=== PATIENT | female | born 1965 | race Caucasian/White ===

== ENCOUNTER 2017-03-27 05:26 | Observation (INO) | payer BC, OTHER ==
[~2017-03-27] VITALS: Ht 154.9 cm; Wt 84.4 kg
[~2017-03-27 05:26] MED LIST: FERR325C PO; ZOLO100T PO
[2017-03-27] MEDS ORDERED: LACTATED RINGER'S 1000 ML IV PRN (05:45)
[2017-03-27] MEDS ORDERED: SODIUM CHLORID 0.9% 500 ML IV PRN (05:45)
[2017-03-27] MEDS ORDERED: METOPROLOL TARTRATE 25 MG TAB PO PRN (05:45)
[2017-03-27] MEDS ORDERED: CHLORHEXIDINE GLUCONATE 2 % 1 PACK (2 CLOTHS) TOPICAL PRN (05:45)
[2017-03-27] MEDS ORDERED: INSULIN HUMAN REGULAR 1,000 UNITS/10 ML VIAL SQ PRN (05:45)
[2017-03-27] MEDS ORDERED: ALLE60TA PO (06:19)
[2017-03-27] MEDS: ceFAZolin 2 GM PREMIX 50 ML IV SCH ×2 (06:44→09:11)
[2017-03-27 06:54] LABS: AUTOMATED NEUTROPHIL # 2.4 TH/MM3 (1.8-7.7); BASOPHIL # 0.1 TH/MM3 (0-0.2); BASOPHIL % 1.1 % (0.0-2.0); EOSINOPHIL # 0.2 TH/MM3 (0-0.4); EOSINOPHIL % 3.1 % (0.0-4.0); HEMATOCRIT 30.4 % (35.0-46.0); HEMO FLAGS DIFF FINAL; LYMPH % 36.7 % (9.0-44.0); LYMPHOCYTE # 1.8 TH/MM3 (1.0-4.8); MEAN CELL VOLUME 67.5 FL (80.0-100.0); MEAN CORPUSCULAR HEMOGLOBIN 21.1 PG (27.0-34.0); MEAN CORPUSCULAR HGB CONC 31.2 % (32.0-36.0); MONO % 9.2 % (0.0-8.0); NEUT % 49.9 % (16.0-70.0); PLATELET COUNT 388 TH/MM3 (150-450); RED CELL DISTRIBUTION WIDTH 18.8 % (11.6-17.2); WHITE BLOOD COUNT 4.9 TH/MM3 (4.0-11.0)
[2017-03-27] MEDS ORDERED: ACETAMINOPHEN 1000 MG/100 ML VIAL ONE (07:12)
[2017-03-27 07:20] LABS: BETA HCG QUANT LESS THAN 1 MIU/ML (0-5)
[2017-03-27] MEDS: BUPIVACAINE/EPINEPHRINE 0.25% 50 ML VIAL ONE (07:38)
[2017-03-27] MEDS ORDERED: MIDAZOLAM HCL 2 MG/2 ML VIAL ONE (09:59)
[2017-03-27] MEDS ORDERED: ONDANSETRON HCL 4 MG/2 ML VIAL IVP PRN (10:00)
[2017-03-27] MEDS ORDERED: SODIUM CHLORIDE 0.9% FLUSH 10 ML FLUSH IV FLUSH PRN (10:00)
[2017-03-27] MEDS ORDERED: fentaNYL CITRATE 250 MCG/5 ML AMP ONE (10:00)
[2017-03-27] MEDS ORDERED: KETOROLAC TROMETHAMINE 30 MG/ML (IVP) VIAL IVP PRN (10:00)
[2017-03-27] MEDS ORDERED: IBUPROFEN 600 MG TAB PO PRN (10:00)
[2017-03-27] MEDS ORDERED: HYDROmorphone HCL PF 1 MG/ML VIAL IVP PRN (10:00)
[2017-03-27] MEDS ORDERED: diphenhydrAMINE HCL 25 MG CAP PO PRN (10:00)
[2017-03-27] MEDS ORDERED: oxyCODONE/ACETAMINOPHEN 5 MG/325 MG TAB PO PRN (10:00)
--- NOTE | 2017-03-27 10:05 | PD.OP ---
Operative Report Date of Surgery: Mar 27, 2017 Preoperative Diagnosis: (1) Fibroid tumor (2) Anemia Postoperative Diagnosis: (1) Fibroid tumor (2) Anemia Procedure: LASH bilateral salpingectomy Anesthesia: general Surgeon: Bert Le Upper Marker(s): Bert Cisneros MD Mar 27, 2017 10:05
[2017-03-27] MEDS ORDERED: *MEPERIDINE 25 MG INJ VIAL PERIprocedural Use ONLY ONE (10:11)
[2017-03-27] MEDS ORDERED: OXYC1TAB63 PO (10:12)
[2017-03-27] MEDS ORDERED: LACTATED RINGER'S 1000 ML INJ 1,000 ML ONE (10:25)
[2017-03-27] MEDS ORDERED: DO NOT ADM ANY ANTICOAGULANT DRUGS PRN (10:30)
[2017-03-27] MEDS: LACTATED RINGER'S 1000 ML INJ 1,000 ML IV SCH ×2 (10:30→20:38)
--- NOTE | 2017-03-27 10:30 | MP ---
cc: DONITA LE M.D. DATE OF SURGERY 03/27/2017 PROCEDURE Laparoscopic supracervical hysterectomy with bilateral salpingectomy. PREOPERATIVE DIAGNOSIS Fibroid uterus and anemia. POSTOPERATIVE DIAGNOSIS Fibroid uterus and anemia. SURGEON Dr. Donita Le ESTIMATED BLOOD LOSS 200 cc COMPLICATIONS None FINDINGS Large fibroid uterus, boggy with a prolapsed fibroid in the endocervical canal. Ovaries appeared normal. Fallopian tubes were normal. Upper and lower abdomen were otherwise normal. PROCEDURE IN DETAIL After informed consent, the patient taken to the operating room where she was placed under general anesthesia and placed in the supine position, legs in the Yellow-fin stirrups. The abdomen, perineum and vagina were prepped and draped in a normal sterile fashion. After adequate anesthesia was assured and a time-out was taken, a speculum placed in the vagina. A sponge stick was placed at the cervix and a Sauceda catheter was then placed to dependent gravity. After gloves were changed, a 5 mm infraumbilical incision was then made, carried sharply into the subcutaneous tissue. We entered the abdomen under direct visualization. A survey of the upper and lower abdomen as are as in the findings. Left and right lower quadrant 5 mm trocars were placed. We proceeded with the Harmonic scalpel to take down the fallopian tubes off the ovaries in the mesosalpinx and then amputating both fallopian tubes to be sent to pathology. We came across the round ligament and the utero-ovarian ligament by dissecting with harmonic scalpel. Good hemostasis was achieved down to the level of the uterine arteries. Once we down to the level of the uterine arteries, a bladder flap was created by dissecting the bladder off the lower uterine segment, pushed down onto the cervix and the uterine arteries were taken. There was slight back bleeding and a suction computer science intern had to be opened. At this point, we used bipolar cautery to control that backbleeding, visualized well, dissected the uterine arteries down the level of the cervical neck. We came across the cervix without difficulty with the Harmonic scalpel and amputated the uterus. Good hemostasis was achieved and the prolapsed fibroid was in the cervical os which was removed. At this point, a small laparotomy incision suprapubically was made to pull the uterus out intact. Secondary to fibroids, we did not want to morcellate. We removed the uterus without difficulty intact and not spill any of the tissue into the abdomen. At that point, once the uterus was completely removed from the abdomen, the 30 mm incision was closed with Vicryl suture and then the skin was closed suprapubically. The abdomen was reinsufflated. All pedicles were noted to be hemostatic. The pelvis was irrigated free of all clots and debris. Good hemostasis was achieved at all pedicles. The cervix appeared normal. At this point, the pelvis was hemostatic. All instruments were removed. CO2 was removed from the abdomen and the 5 mm incisions were all closed with 4-0 Monocryl. The patient tolerated the procedure well. She was taken to the recovery room in stable condition. All instruments were removed from the vagina and the abdomen. MD MAXIME Chong/ARISTEO /10:05 AM /10:17 AM
[2017-03-27] MEDS ORDERED: PHENYLEPH/NS 1000 MCG/10 ML SYR IV ONE (12:22)
[2017-03-27] MEDS ORDERED: NEOSTIGMINE 3 MG/3 ML SYR IV ONE (12:22)
[2017-03-27] MEDS ORDERED: ONDANSETRON HCL 4 MG/2 ML VIAL IV PUSH ONE (12:22)
[2017-03-27] MEDS ORDERED: KETOROLAC TROMETHAMINE 60 MG/2 ML (IM) VIAL IM ONE (12:22)
[2017-03-27] MEDS ORDERED: PROPOFOL 200 MG/20 ML AMP IV ONE (12:22)
[2017-03-27] MEDS ORDERED: LACTATED RINGER'S 1000 ML INJ 1,000 ML IV ONE (12:22)
[2017-03-27] MEDS ORDERED: ePHEDrine/NS 25 MG/5 ML SYR IV ONE (12:22)
--- NOTE | 2017-03-27 13:38 | EKG ---
Date Performed: 03/27/2017 Time Performed: 06:29:00 PTAGE: 51 years EKG: Sinus bradycardia. Normal ECG except for rate Compared to prior tracing no significant aguilera ge PREVIOUS TRACING : 08/03/2010 07.36 DOCTOR: Annette Bowles Interpretating Date/Time 03/27/2017 13:37:02
[2017-03-27 14:00] VITALS: BP 104/54; PULSE 80; RESP 16; TEMP 97.4; O2SAT 92
[2017-03-27] MEDS: oxyCODONE/ACETAMINOPHEN 5 MG/325 MG TAB PO PRN ×2 (14:20→19:25)
[2017-03-27 16:00] VITALS: BP 107/56; PULSE 85; RESP 16; TEMP 97.4; O2SAT 95
[2017-03-27 20:00] VITALS: BP 114/56; PULSE 83; RESP 17; TEMP 97.5; O2SAT 93
[2017-03-27] MEDS: SODIUM CHLORIDE 0.9% FLUSH 10 ML FLUSH IV FLUSH SCH (20:40)
[2017-03-27 21:32] VITALS: O2SAT 94
[2017-03-28] VITALS: BP 96/52; PULSE 72; RESP 18; TEMP 97; O2SAT 97
[2017-03-28] MEDS: oxyCODONE/ACETAMINOPHEN 5 MG/325 MG TAB PO PRN ×2 (00:23→06:44)
[2017-03-28 04:00] VITALS: BP 93/53; PULSE 73; RESP 18; TEMP 98.1; O2SAT 97
[2017-03-28 06:54] LABS: AUTOMATED NEUTROPHIL # 7.1 TH/MM3 (1.8-7.7); BASOPHIL % 0.1 % (0.0-2.0); HEMATOCRIT 24.4 % (35.0-46.0); HEMO FLAGS DIFF FINAL; LYMPH % 13.7 % (9.0-44.0); LYMPHOCYTE # 1.2 TH/MM3 (1.0-4.8); MEAN CELL VOLUME 67.8 FL (80.0-100.0); MEAN CORPUSCULAR HEMOGLOBIN 20.9 PG (27.0-34.0); MEAN CORPUSCULAR HGB CONC 30.8 % (32.0-36.0); MONO % 8.2 % (0.0-8.0); PLATELET COUNT 326 TH/MM3 (150-450); WHITE BLOOD COUNT 9.1 TH/MM3 (4.0-11.0)
--- NOTE | 2017-03-28 07:50 | HHI.OB ---
Subjective Post Operative Day: 1 Remarks doing well. Feels good no flatus but good BS and no nausea Objective Vitals/I&O Vital Signs Date Time Temp Pulse Resp B/P (MAP) Pulse Ox O2 Delivery O2 Flow Rate FiO2 03/28/17 04:00 98.1 73 18 93/53 (66) 97 03/28/17 00:00 97.0 72 18 96/52 (67) 97 03/27/17 21:32 94 21 03/27/17 20:00 97.5 83 17 114/56 (75) 93 03/27/17 16:00 97.4 85 16 107/56 (73) 95 03/27/17 14:00 97.4 80 16 104/54 (71) 92 03/27/17 13:40 82 16 95 03/27/17 13:30 97.6 86 16 108/56 (73) 95 Room Air 03/27/17 13:00 85 16 103/55 (71) 94 Room Air 03/27/17 12:00 84 16 107/54 (71) 94 Room Air 03/27/17 11:30 82 16 108/59 (75) 99 Nasal Cannula 2 03/27/17 11:00 97.5 80 16 106/54 (71) 98 Nasal Cannula 2 03/27/17 10:45 78 15 105/52 (69) 96 Nasal Cannula 2 03/27/17 10:30 75 15 110/53 (72) 95 Nasal Cannula 2 03/27/17 10:15 74 15 113/58 (76) 99 Nasal Cannula 3 03/27/17 10:00 73 15 116/55 (75) 98 Nasal Cannula 3 03/27/17 09:50 97.8 75 17 124/58 (80) 100 Nasal Cannula 4 Intake & Output 03/28/17 03/28/17 07:00 19:00 Intake Total 600 ml Output Total 1000 ml Balance -400 ml Intake IV Total 600 ml Output Urine Total 1000 ml # Voids 1 Result Diagram: 03/28/17 0532 Objective Remarks GENERAL: Well-nourished, well-developed patient. CARDIOVASCULAR: Regular rate and rhythm without murmurs, gallops, or rubs. RESPIRATORY: Breath sounds equal bilaterally. No accessory muscle use. ABDOMEN/GI: Abdomen soft, non-tender, bowel sounds present. Incision: Clean, dry and intact. GENITOURINARY: Light to moderate bleeding. EXTREMITIES: No cyanosis or edema, non-tender, without signs of DVT. Medications and IVs Current Medications Medications (Trade) Dose Ordered Sig/Ya Route Start Time Stop Time Status Last Admin (Lopressor) 25 mg MATE FISHING VESSEL PRN PO 03/27/17 05:45 03/30/17 05:44 (Chlorhexidine 2% Cloth) 3 pack MATE FISHING VESSEL PRN TOPICAL 03/27/17 05:45 03/30/17 05:44 03/27/17 05:40 (NovoLIN R INJ) See Protocol Table ... MATE FISHING VESSEL PRN SQ 03/27/17 05:45 03/30/17 05:44 (NS Flush) 2 ml UNSCH PRN IV FLUSH 03/27/17 10:00 (NS Flush) 2 ml BID IV FLUSH 03/27/17 21:00 03/27/17 20:40 (Motrin) 600 mg Q6H PRN PO 03/27/17 10:00 (Toradol Inj) 30 mg Q6H PRN IVP 03/27/17 10:00 04/01/17 09:59 (Percocet 5-325 Mg) 1 tab Q4H PRN PO 03/27/17 10:00 (Percocet 5-325 Mg) 2 tab Q4H PRN PO 03/27/17 10:00 03/28/17 06:44 (Dilaudid Pf Inj) 1 mg Q4H PRN IVP 03/27/17 10:00 (Benadryl) 25 mg Q6H PRN PO 03/27/17 10:00 (Zofran Inj) 4 mg Q6H PRN IVP 03/27/17 10:00 Lactated Ringer's 1,000 ml @ 75 mls/hr [id number] IV 03/27/17 10:30 03/27/17 20:38 Miscellaneous Information ALL NURSING DEPARTME... UNSCH PRN .XX 03/27/17 10:30 03/28/17 10:29 Assessment/Plan Problem List: (1) Fibroid tumor ICD Codes: D25.9 - Leiomyoma of uterus, unspecified (2) Anemia ICD Codes: D64.9 - Anemia, unspecified Qualifiers: Qualified Codes: D50.0 - Iron deficiency anemia secondary to blood loss ( chronic) Assessment and Plan post op DC home POD #1 Discharge Planning follow up Bert Beckford MD Mar 28, 2017 07:50
--- NOTE | 2017-03-28 07:52 | HHI.DCPOC ---
Discharge Care Plan Diagnosis: (1) Anemia (2) Fibroid tumor Report Symptoms to Your Doctor -Temperature above 100.5 degrees -Redness, of incision or excessive or foul smelling drainage -Unusual pain or calf pain -Increased vaginal bleeding -Painful or difficulty urinating -Feelings of extreme sadness or anxiety after 2 weeks Goals to Promote Your Health * To prevent worsening of your condition and complications * To maintain your health at the optimal level Directions to Meet Your Goals Take your medications as prescribed Follow your dietary instruction Follow activity as directed Ensure plenty of rest for recovery Drink fluids for hydration Keep your appointments as scheduled Take your immunizations and boosters as scheduled If your symptoms worsen call your PCP, if no PCP go to Urgent Care Center or Emergency Room Smoking is Dangerous to Your Health. Avoid second hand smoke Call the 24-hour crisis hotline for domestic abuse at Bert Le MD Mar 28, 2017 07:52
[2017-03-28] MEDS ORDERED: OXYC1TAB63 PO (07:54)
--- NOTE | 2017-03-28 07:56 | HHI.DS ---
Admission Date Mar 27, 2017 at 09:55 Discharge Date: Mar 28, 2017 Admitting Diagnosis fibroids Diagnosis: (1) Anemia ICD Codes: D64.9 - Anemia, unspecified (2) Fibroid tumor ICD Codes: D25.9 - Leiomyoma of uterus, unspecified Brief History admit for [facility] Hospital Course surgery without difficulty and DC home pod#1 Pt Condition on Discharge: Good Discharge Disposition: Discharge Home Discharge Instructions Diet Instructions: As Tolerated, No Restrictions Activities You Can Perform: Pelvic Rest Activities to Avoid: Driving for 24 hrs Follow up Referrals: [facility] - 2 Weeks @ [facility] with Bert Le MD New Medications: Oxycodone-Acetaminophen (Oxycodone-Acetaminophen) 5-325 mg Tab 1 TAB PO Q4H PRN for PAIN SCALE 1 TO 5 for 7 Days, #30 TAB 0 Refills Oxycodone-Acetaminophen (Oxycodone-Acetaminophen) 5-325 mg Tab 2 TAB PO Q4H PRN for PAIN 6-10 WHEN TOLERATING PO for 7 Days, #30 TAB 0 Refills Continued Medications: Ferrous Sulfate (Iron) 325 Mg Cap Unknown Dose PO DAILY for Nutritional Supplement, #30 TAB 0 Refills Fexofenadine (Cherie Allergy) 60 Mg Tab 60 MG PO DAILY for Allergy Management, #60 TAB 0 Refills Sertraline (Zoloft) 100 Mg Tab 100 MG PO DAILY, #90 TAB 3 Refills Bert Le MD Mar 28, 2017 07:56
[2017-03-28 08:00] VITALS: BP 108/61; PULSE 66; RESP 14; TEMP 97.7; O2SAT 96
[2017-03-28] MEDS: SODIUM CHLORIDE 0.9% FLUSH 10 ML FLUSH IV FLUSH SCH (09:00)
[2017-03-28] MEDS: LACTATED RINGER'S 1000 ML INJ 1,000 ML IV SCH (09:46)
[2017-03-28 12:00] VITALS: BP 123/65; PULSE 66; RESP 14; TEMP 97.7; O2SAT 99
[2017-03-28 13:01] VITALS: O2SAT 96
== END 2017-03-28 14:02 | disposition home or self-care (01) ==
LOC: HSDC 05:26 → HSDI 09:55 → HOCA 13:56
PROVIDERS: ADMIT Obstetrics & Gynecology; ATTEND Obstetrics & Gynecology
DX: D25.9 Leiomyoma of uterus, unspecified (principal); N71.1 Chronic inflammatory disease of uterus; N83.8 Other noninflammatory disorders of ovary, fallopian tube and broad ligament; D50.0 Iron deficiency anemia secondary to blood loss (chronic); Z01.810 Encounter for preprocedural cardiovascular examination
CPT/HCPCS: 00840; 58542; 84702; 85025; 86850; 86900; 86901; 88307; 93005; G0378; J0131; J0690; J1885; J2175; J2250; J2370; J2405; J2710; J3010; J7120